=== PATIENT | male | born 1960 | race Caucasian/White ===

== ENCOUNTER 2023-04-03 06:42 | Outpatient (CLI) | payer BC, SELFPAY ==
[2023-04-03 07:51] VITALS: BMI 35.1
--- NOTE | 2023-04-03 07:56 | NMCV_ITS ---
NM betty perf SPECT r/s* [id number] Gregory Peralta Age: 63 Gender: M : 1960 Exam Date: 04/03/2023 08:11 Ordering Phys: Anny Fonseca Technologist: LINN Sage Exam Location: [facility] Indications: SHORTNESS OF BREATH STRESS TEST [facility] IMAGE PROTOCOL Rest/Stress 1 Exercise Day Radiopharmaceutical Dose (mCi) Administration Site Administered by Rest: Tc-99m 10.8 IV Refugio Cancino, TARGET TRIMMER Sestamibi Stress:Tc-99m 32.8 IV Refugio Cancino, TARGET TRIMMER Sestamibi Rest: 03-Apr-2023 60 Discovery 630 Stress: 03-Apr-2023 30 Discovery 630 Radiopharmaceutical was injected at 93 % maximum heart rate. Images obtained in supine and prone position. SPECT RESULTS Technical Quality: Excellent Raw Data Analysis: Normal Image Corrections: No attenuation or motion correction applied Summed Stress Score: 7 Summed Rest Score: 3 Summed Difference Score: 4 PERFUSION FINDINGS There is a small to medium sized, partially reversible perfusion defect noted in the inferolateral and inferior patino. This is consistent with small to medium sized areas of prior infarct with edward-infarct ischemia seen in left circumflex artery and RCA territories. FUNCTIONAL RESULTS (calculated via Gated SPECT) Stress Image LV EF (%): 59 Stress EDV (mL):145 TID: 0.86 Stress ESV (mL):60 FUNCTIONAL FINDINGS: There is normal left ventricular systolic function. IMPRESSIONS 1. Abnormal myocardial perfusion imaging with small to medium sized prior infarct with edward-infarct ischemia noted in the left circumflex artery and RCA territories. 2. LV systolic function is normal Kirt Gagnon MD (Electronically Signed) Final Date: 06 April 2023 11:00 S
--- NOTE | 2023-04-03 07:56 | ECG_ITS ---
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 Interpretive Statements NAME OF STUDY: EXERCISE SESTAMIBI STRESS TEST INDICATION: [mendes] EXERCISE DATA: The patient was exercised by Mark protocol. Baseline heart rate was 70 beats per minute. Baseline blood pressure was 157/107 millimeters of mercury. Target heart rate was 132 beats per minute. Maximum heart rate achieved was 147 which was 111% of the target heart rate. Maximum blood pressure was 243/96 millimeters of mercury. Total exercise time was 7 minutes 1 seconds. Maximum METs achieved was 10.2. The reason for ending the test was maximal effort achieved. The patient complained of shortness of breath during the stress test, which then resolved at the end of the test. ELECTROCARDIOGRAM: BASELINE: Showed sinus rhythm, normal axis, no significant ST-T changes at the baseline noted. [] EXERCISE: At the peak exercise level, [] No significant ST-T changes suggestive of ischemia noted. PVCs were noted [] RECOVERY: During the recovery period, heart rate dropped appropriately. No significant ST-T changes in the recovery suggestive of ischemia noted. [] CONCLUSION: 1. Exercise capacity is good 2. Heart rate response was appropriate 3. Blood pressure response was hypertensive. 4. Symptoms not suggestive of ischemia. 5. Electrocardiogram portion of the stress test was not suggestive of ischemia. 6. Nuclear scan will be documented separately. Electronically Signed On 04-29-2023 14:36:13 CDT by Kirt Gagnon M.D. [id number]
[2023-04-03 09:11] VITALS: BP 172/97; PULSE 83
== END 2023-04-03 06:43 | disposition home or self-care (01) ==
PROVIDERS: PCP Physician Assistant; Visit Provider Physician Assistant
DX: R06.00 Dyspnea, unspecified (principal); R06.02 Shortness of breath; I25.2 Old myocardial infarction
CPT/HCPCS: 36415; 78452; 93017; A9500

== ENCOUNTER 2023-05-22 08:40 | Outpatient (CLI) | payer BC, SELFPAY ==
--- NOTE | 2023-05-22 09:00 | USCV_ITS ---
Gregory Peralta Age: 63 Gender: M : 1960 Exam Date: 05/22/2023 08:57 Ordering Phys: Nai Calhoun Technologist: CT Exam Location: [facility] Indication: abn stress test BP: 130 / 85 HR: 57 Rhythm: Sinus Technical Quality: Adequate MEASUREMENTS (Male / Female) Normal Values 2D ECHO LVOT Diameter 2.9 cm LV Ejection Fraction MOD 2C 51.4 % LV Ejection Fraction 2C AL 50.6 % LA Diameter 4.7 cm Aorta at Sinotubular Diameter 3.0 cm IVC Diameter 1.8 cm M-MODE Aortic Annulus Diameter 3.9 cm LA Ao Ratio MM 1.3 MV E Point Septal Separation 1.1 cm DOPPLER AV Peak Velocity 147.0 cm/s LVOT Peak Velocity 104.0 cm/s AV Area Cont Eq vti 4.1 cm squared AV Area Cont Eq pk 4.5 cm squared MV Area PHT 3.0 cm squared Mitral E to A Ratio 0.8 MV E' Velocity 34.5 cm/s Mitral E to MV E' Ratio 8.9 Mitral E to LV E' Lateral Ratio 7.0 Mitral E to LV E' Septal Ratio 12.4 TR Peak Velocity 71.0 cm/s TR Peak Gradient 2.0 mmHg TV Peak E Velocity 72.0 cm/s Right Atrial Pressure 3.0 mmHg Pulmonary Artery Systolic Pressu 5.0 mmHg PV Peak Velocity 109.0 cm/s FINDINGS Left Ventricle Normal left ventricular size and systolic function, EF 61 %. No regional wall motion abnormalities. Right Ventricle The right ventricle is normal in size and function. Right Atrium The right atrium is normal in size. Left Atrium The left atrium is normal in size. Mitral Valve No gross abnormalities noted Aortic Valve Thickened aortic valve. [id number] aortic valve regurgitation. Tricuspid Valve No gross abnormalities noted Pulmonic Valve Pulmonic valve not well visualized. Pericardium Trivial pericardial effusion. Aorta Normal ascending aorta dimension. IVC The inferior vena cava appears normal. CONCLUSIONS Normal left ventricular size and systolic function, EF 61 %. No regional wall motion abnormalities. Thickened aortic valve. [id number] aortic valve regurgitation. Trivial pericardial effusion. Normal cardiac chamber sizes. Trivial pericardial effusion. There are no intracardiac masses. No similar previous studies are available for comparison. Dr Nai Calhoun MD FACC (Electronically Signed) Final Date: 25 May 2023 12:33 S
== END 2023-05-22 08:41 | disposition home or self-care (01) ==
PROVIDERS: PCP Physician Assistant; Visit Provider Internal Medicine Cardiovascular Disease
DX: R06.09 Other forms of dyspnea (principal); I35.8 Other nonrheumatic aortic valve disorders; I35.1 Nonrheumatic aortic (valve) insufficiency
CPT/HCPCS: 93306

== ENCOUNTER 2024-03-03 10:02 | Outpatient (CLI) | payer BC, SELFPAY ==
[2024-03-03 10:29] LABS: Basophils % 0.4 %; Eosinophils # 0.2 10^3/uL (0.0-0.8); Eosinophils % 3.3 %; Hematocrit 51.6 % (37-53); Lymphocytes # 1.6 10^3/uL (0.8-4.8); Lymphocytes % 35.1 %; Mean Corpuscular HGB Conc 33.7 g/dL (30-55); Mean Corpuscular Hemoglobin 30.6 pg (27-33); Mean Corpuscular Volume 90.7 fl (82-101); Mean Platelet Volume 8.9 fL (7.4-10.4); Monocytes # 0.4 10^3/uL (0.2-0.9); Monocytes % 8.8 %; Neutrophils # 2.35 10^3/uL (1.8-7.7); Nucleated Red Blood Cells % 0 %; Platelet Count 186 10^3/cmm (157-399); Red Blood Count 5.69 10^6/uL (3.85-5.65); Red Cell Distribution Width 13.3 % (12.1-15.1); White Blood Count 4.53 10^3/uL (3.29-11.43)
[2024-03-03 10:47] LABS: INR 0.86 (0.8-1.2)
[2024-03-03 11:17] LABS: Anion Gap 18.8 (5-19); Blood Urea Nitrogen 16 mg/dL (8-23); Carbon Dioxide 22 mmol/L (22-29); Chloride 101 mmol/L (98-107); Glucose 112 mg/dL (65-115); Osmolality Calculated 286 mOsm/kg (285-295); Potassium 4.8 mmol/L (3.5-5.1); Sodium 137 mmol/L (136-145)
== END 2024-03-03 10:03 | disposition home or self-care (01) ==
LOC: LAB 10:02
PROVIDERS: PCP Physician Assistant; Visit Provider Internal Medicine Cardiovascular Disease
DX: Z79.01 Long term (current) use of anticoagulants (principal); I48.91 Unspecified atrial fibrillation; I25.118 Atherosclerotic heart disease of native coronary artery with other forms of angina pectoris; R06.02 Shortness of breath
CPT/HCPCS: 36415; 80048; 85025; 85610; 86850; 86900

== ENCOUNTER 2024-03-10 07:29 | Outpatient (CLI) | payer BC, SELFPAY ==
[2024-03-10] VITALS (7 sets, daily range): BP systolic 119–150; BP diastolic 80–100; PULSE 60–79; RESP 16–24; TEMP 36.7–36.9; O2SAT 92–98; BMI 36.3
[2024-03-10] MEDS: diphenhydrAMINE 50 mg Capsule PO (07:45)
--- NOTE | 2024-03-10 07:52 | W.PM.OPSUD ---
Surgery/Procedure H&P Update DATE OF PROCEDURE: March 10, 2024 DATE H&P PERFORMED: 02/29/24 H&P UPDATE INFORMATION: I have reviewed H&P completed within last 30 days, I have examined patient prior to procedure and No changes to prior documentation PREOP DIAGNOSIS: Possible ASHD PRIMARY INDICATION FOR PROCEDURE: Abnormal Myocardial perfusion imaging, multiple risk factors for coronary artery disease, ongoing chest pain/shortness of breath PLANNED PROCEDURE: Operation Date: 03/10/24 08:30 Proposed Procedures p Cardiac Catheterization(Left) - Nai Calhoun MD PATIENT REASSESSED PRIOR TO SEDATION, WITH NO CHANGE NOTED: Yes PHYSICAL EXAM: alert, oriented x 3, clear to auscultation bilaterally and regular rate & rhythm AIRWAY EVAL/ANESTHESIA PLAN: normal airway, see other exam findings, ASA III, Local Anesthesia, Risks, benefits & alternatives of sedation and/or procedure discussed and Patient agrees to continue as planned
--- NOTE | 2024-03-10 08:30 | XACV_ITS ---
Exam Room: 2 Ht: 185 cm Wt: 125 kg BSA: 2.58 m2 Gender: Male : 1960 Any Known Allergies: Codeine Exam Priority: Routine Procedure(s): Procedure Description: Diagnostic procedure Procedure Description: Left Heart Catheterization Procedure Description: Left ventriculography Procedure Description: Coronary Angiography Procedure Description: Pressure Wire Lj SMITH; Diagnostic Cath Status: Elective Diagnostic Findings * Left main is a medium caliber vessel with minimal intimal irregularities and calcification. No significant stenotic lesions were noted. * Left anterior descending artery is a medium caliber vessel which appears to wraparound the LV apex minimally. There was moderate diffuse calcification in the proximal segment. Around 40% tubular narrowing was noted in the proximal segment of the artery. The first diagonal branch is small caliber vessel with was found to have a high-grade lesion involving the ostium. The first septal dioramist also was found to have a high-grade ostial stenosis. * The left circumflex artery is a medium caliber vessel which is also known to have a mild diffuse calcification in the proximal segment. Near the ostium, there was a 40% concentric narrowing. Near to the ostium of the circumflex artery, there was some haziness. This may suggest thrombus. The obtuse marginal artery was of equal caliber with minimal intimal irregularities.. * The right coronary artery is a small to medium caliber vessel which appears to have mild diffuse intimal irregularities no significant stenotic lesions were noted. The artery appears to be codominant with the circumflex artery. PCI Status: Elective PCI LVEF Assessed: Yes Interventional Findings * IFR ostial CX 0.99. Conclusions 1. 63-year-old white male with a history of hypertension, dyslipidemia, presents with complaints of chest pain and shortness of breath. He had a Myocardial perfusion imaging done in March of last year which it was found to be abnormal. He presented with increasing dyspnea on exertion, easy fatigability and episodes of chest discomfort. In view of his ongoing and worsening symptoms, in order to further evaluate his coronary status, a cardiac catheterization was recommended. Patient underwent left heart catheterization with left and right coronary angiogram and LV angiogram today. Findings are as follows. 2. Mild diffuse disease in the left main artery. Moderate calcification in the proximal segment of the left anterior descending artery involving the ostium causing around 40% narrowing. The first diagonal branch and the septal dioramist where found to have have an ostial stenosis of around 70%. This related to small caliber vessels. Mild diffuse calcification of the proximal circumflex artery. Minimal intimal irregularities in the right coronary artery. Haziness in the proximal segment of the circumflex artery near the ostium, may suggest thrombus or calcification. LV ejection fraction around 55%. LVEDP of 5 mmHg. Found to be. 3. Discussed and reviewed the cardiac catheterization data with the Dr. Irwin. Based on the angiographic findings, it was thought to be appropriate to consider IFR on the proximal circumflex lesion. Dr. Irwin concurred with this plan and took over further management of this patient at this point. Diagnostic RX Recommendation: other cardiac therapy w/o CABG/PCI Ventriculography Ejection Fraction: 55.0 % LV EDP: 4 mmHg Left Ventriculography Findings: * LV gram was done in the ADAMS projection. LV cavity appears to be within normal limits. There was significant mitral valve prolapse or mitral regurgitation. The overall variation fraction was around 55%. LVEDP of 4 mmHg. Pressures Phase:Rest AO : 120 / 68 ( 91 ) @ 10:32:00 AM 126 / 68 ( 90 ) @ 10:32:00 AM 114 / 76 ( 95 ) @ 11:00:00 AM LV : 117 / -21 / 4 @ 10:30:00 AM 107 / -29 / -5 @ 10:31:00 AM 124 / -18 / 7 @ 10:31:00 AM 120 / -14 / 10 @ 10:32:00 AM Valves Phase:DefaultPhase AV : 0.0 @ 10:12:51 AM AV Mean Gradient: 0.0 @ 10:12:51 AM Clinical Evaluation EBL: 5mL-10mL Procedural Details Pre-Procedure Time Out. Identified patient by full name and date of as verbalized by the patient/guarantor. Does the consent match the physician's order: Yes. Accurate & Complete Informed Consent: Yes. Inpatient/Outpatient History & Physical on Chart: Yes. If H&P is completed, is and addenduem needed: No. Visualize and Verify Site with Patient/Guarantor: N/A. Relevant Radiology Images available: Yes. Pre-op teaching completed and patient verbalized understanding. The risks, benefits, and alternatives of sedation and/or procedure were discussed by physician. The patient agrees to continue. Procedure started. [facility] Clinical Fraility Score: 3: Managing Well. 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 Chest Pain Symptom Assessment: Typical Angina Symptoms. Cardiovascular Instability: No. Correct patient, site and procedure confirmed by cath team. PERRLA. Strong, equal hand station engineer chief bilaterally. Lungs clear x 5 lobes. IV Site on Arrival: 20 gauge in the right anticubital. IV Fluids: 0.9% NaCl at KVO. 0 mL infused prior to laborer chemical processing. Pre Procedural Pulses: bilateral dorsalis pedis was 3+. Pre Procedural Pulses: bilateral posterior tibial was 2+. Pre Procedural Pulses: bilateral radial was 3+. Oxygen started at 2liters/min via nasal canula. right groin was prepped with chloroprep then draped in the usual sterile fashion. right radial was prepped with chloroprep then draped in the usual sterile fashion. Physician notified. Baseline sample Acquired. HR: 55 BPM. Patient's spouse in the laborer chemical processing waiting room. Dr. Calhoun will update at the completion of the procedure. Equipment: 6F - Radial. Cardiac Cath Pack. ACIST Manifold Kit Model BT 2000. Heparinized Saline (2 units/mL), 1000 mL bag. Physician arrived. Physician scrubbed in. Immediate Pre-Procedure Time Out. Correct Patient: Yes; Correct Procedure: Yes; Correct Site: Yes; Correct Patient Position: Yes; Correct Supplies: Yes; Dried Flammable Prep: Yes; Blood Products Available: N/A;. Lidocaine 1% infiltrated to the right radial. An attempt to gain access to the right radial artery was unsuccessful. TR band placed. Hemostasis obtained. Lidocaine 1% infiltrated to the right groin. Arterial access obtained with micropuncture set. A 5 english JL4 catheter in over the standard J wire. Multiple views taken of left coronary artery. Catheter removed over the standard J wire. A 5 english JR4 catheter in over the standard J wire. Multiple views taken of right coronary artery. Catheter removed over the exchange J wire. A 6 english 125cm Straight Pig catheter in over the exchange J wire. EDP Sample taken: LV 117/-22,4; HR: 54 BPM; SpO2: 94%. LV gram performed in ADAMS @ 12 mL/second for a total of 36 mL. EDP Sample taken: LV 107/-30,-6; HR: 68 BPM; SpO2: 95%. EDP Sample taken: LV 124/-19,7; HR: 68 BPM; SpO2: 95%. Pullback taken: LV 120/-15,10; AO 120/68(91); Mean: 0mmHg, Peak to Peak: 0mmHg, SEP: 5sec/min; HR: 66 BPM; SpO2: 95%. Catheter removed over the standard J wire. Dr. Irwin called to view cineography. Dr. Calhoun scrubbed out. Dr. Irwin here to view cineography. Dr. Irwin scrubbed in. 6 english XB 3.5 guide catheter was inserted over the standard J wire. Guide catheter out over the standard J wire. 6 english XB 4 guide catheter was inserted over the standard J wire. iFR guidewire was advanced through the guide catheter to lesion in the ostial Circ. iFR spot of the Ostial CX = 0.99. iFR wire out. Guide catheter out. Dr. Irwin scrubbed out. A Suture was successful obtaining hemostatsis at the Right Femoral artery insertion site. Sheath(s) sutured into position with 2-0 silk and sterile 4x4's and Op-site applied over the site. No oozing or signs and symptoms of hematoma noted. Arterial sheath flushed and connected to tranducer and pressure bag with heparinized saline. Post Procedure: Pulses reassessed and unchanged. PERRLA. Strong, equal hand station engineer chief bilaterally. No VTE prophylaxis required. Medication's Wasted: Lidocaine 1% = 8 mL. Medication's Wasted: Verapamil = 5 mg. Medication's Wasted: Nitro = 49.95 mg. Medication's Wasted: Heparin = 2500 Units. Total IV fluids: 570 mL. Post-op diagnosis: Non obstructive CAD. Complications: none. Estimated blood loss: 5mL-10mL. Responsiveness - Normal response to verbal stimuli; alert and oriented, PERRLA. Airway - Unaffected, no intervention required; spontaneous ventilation. Circulation: W/N/L, pulses unchanged. Nausea/Vomiting: No. Procedure completed. Patient transferred by bed to CPRU. Vital chart was stopped. Access Site Site: Right Femoral artery Sheath Size: 6 Fr Hemostasis Method: Suture Hemostasis Success: Successful Procedure Medications Start: 8:46 AM Stop: 8:46 AM Medication: Versed Amount: 1 mg Route: I.V. Start: 8:47 AM Stop: 8:47 AM Medication: Fentanyl Amount: 50 mcg Route: I.V. Start: 8:55 AM Stop: 8:55 AM Medication: Versed Amount: 1 mg Route: I.V. Start: 9:00 AM Stop: 9:00 AM Medication: 0.9% Saline Amount: 250 ml Route: I.V. bolus Start: 9:05 AM Stop: 9:05 AM Medication: Nitrogylcerin Amount: 50 mcg Route: S.C. Start: 9:12 AM Stop: 9:12 AM Medication: Versed Amount: 1 mg Route: I.V. Start: 9:15 AM Stop: 9:15 AM Medication: Fentanyl Amount: 25 mcg Route: I.V. Start: 9:22 AM Stop: 9:22 AM Medication: Heparin Amount: 1500 units Route: I.V. Start: 9:30 AM Stop: 9:30 AM Medication: 0.9% Saline Amount: 250 ml Route: I.V. bolus Start: 9:49 AM Stop: 9:49 AM Medication: Fentanyl Amount: 25 mcg Route: I.V. I, the attending physician, have reviewed and verified all procedure medications. Yes, all medications given per verbal order History/Risk Factors Hypertension: Yes Dyslipidemia: Yes Peripheral Arterial Disease (PAD): No Myocardial Infarction (ID): No Obesity: Yes Renal Disease: No Tobacco Use: Former Prior Interventions PCI: No CABG: No Valve Surgery: No Report Signatures Diagnostic Workflow Finalized by Dr Nai Calhoun MD [facility] on 03/10/2024 11:50 AM Interventional Workflow Finalized by Dr. Demario Irwin MD on 03/10/2024 10:19 AM
[2024-03-10 13:03] LABS: Partial Thromboplastin Time 28.2 SECONDS (23.9-36.7)
[2024-03-10] MEDS: fentaNYL 50 mcg/mL INJ 2mL IVP (13:35)
--- NOTE | 2024-03-10 15:08 | PC.NURSE ---
Sheath pulled at 1345 pressure held x20 minutes. No hematoma formation. Pressure dressing applied. Patient verbalized understanding of activity restrictions. Nurse will continue to monitor.
[2024-03-10] MEDS: metoprolol tartrate 25 mg Tablet PO (17:34)
== END 2024-03-10 20:26 | disposition home or self-care (01) ==
LOC: CCL 07:30 → CSU 11:17
PROVIDERS: Internal Medicine Cardiovascular Disease; PCP Physician Assistant; Visit Provider Internal Medicine Cardiovascular Disease
DX: I25.10 Atherosclerotic heart disease of native coronary artery without angina pectoris (principal); I10 Essential (primary) hypertension; E78.5 Hyperlipidemia, unspecified; E66.9 Obesity, unspecified; Z68.36 Body mass index [BMI] 36.0-36.9, adult; Z87.891 Personal history of nicotine dependence
CPT/HCPCS: 36415; 85730; 93458; 93571; 96374; 96375; 99152; 99153; C1769; C1887; C1894; J1644; J2250; J3010; J3490; J7030; Q0163; Q9967

== ENCOUNTER → 2024-03-31 14:16 | Outpatient (BNVA) | payer BC, SELFPAY | PROVIDERS: PCP Physician Assistant; Visit Provider Nurse Practitioner Family | DX: I10 Essential (primary) hypertension (principal) | CPT/HCPCS: 36415; 80048 ==

== ENCOUNTER 2024-06-13 13:15 | Outpatient (CLI) | payer BC, SELFPAY | END 2024-06-13 13:16 | disposition home or self-care (01) | LOC: SLEEP 13:17 | PROVIDERS: PCP Physician Assistant; Visit Provider Physician Assistant | DX: G47.33 Obstructive sleep apnea (adult) (pediatric) (principal); G47.36 Sleep related hypoventilation in conditions classified elsewhere | CPT/HCPCS: G0399 ==

== ENCOUNTER 2024-10-27 08:01 | Emergency (ER) | payer MEDICARE, SELFPAY ==
[2024-10-27] VITALS (24 sets, daily range): BP systolic 118–170; BP diastolic 81–121; PULSE 89–99; RESP 14–25; TEMP 36.9; O2SAT 91–98; BMI 36.6
--- NOTE | 2024-10-27 08:27 | XR_ITS ---
WS: [id number] XR chest 1V portable [id number] REASON FOR EXAM: dyspnea/cough FINDINGS: Significant tortuosity and ectasia of the thoracic aorta. Mild cardiac enlargement. Calcified granulomatous disease bilaterally. No acute pulmonary parenchymal or pleural abnormality is noted. There may be narrowing of the subglottic airway related to upper respiratory tract viral infection. XR/XR chest 1V portable [id number] IMPRESSION: No acute chest abnormality. Possible narrowing of the subglottic airway as above.
--- NOTE | 2024-10-27 08:46 | W.ED.URI ---
HPI - URI/Sore Throat General: Chief Complaint: Upper Respiratory Infection Stated Complaint: throat,sinus,head hurts abnormal talking Time Seen by Provider: 10/27/24 08:24 History of Present Illness: 64-year-old male presents emergency room complaining of neck pain difficulty swallowing for the last 3 days he has garbled voice. He is having a difficult time enunciating words because of the amount of swelling in his neck he refers pain into the left sublingual region and to the submandibular area on the left. Subjective fever. No vomiting or diarrhea no hemoptysis no history of laryngeal cancers. He does not have any teeth issues recently. No history of tobacco use either by chew or smoking. Associated symptoms: Deny abdominal pain, chills, chest pain or fever(s) Related Data Home Medications ?Medication ?Instructions ?Recorded ?Confirmed benazepril 40 mg tablet 40 mg PO DAILY 05/11/23 10/27/24 atorvastatin 40 mg tablet 40 mg PO DAILY 08/25/23 10/27/24 triamcinolone acetonide 0.1 % 1 applic topical BID PRN Skin 10/27/24 10/27/24 topical cream Irritation Previous Rx's ?Medication ?Instructions ?Recorded metoprolol tartrate 25 mg tablet 25 mg PO BID 30 days #180 tabs 07/17/23 Allergies Allergy/AdvReac Type Severity Reaction Status Date / Time codeine Allergy Unknown Verified 03/31/24 13:24 Review of Systems Const: Denies: fever(s) or chills Card: Denies: chest pain Resp: Denies: dyspnea GI: Denies: abdominal pain : Denies: dysuria, urinary frequency or urinary urgency Musc: Reports: neck pain; Denies: back pain Skin/Breast: Denies: rash PFS ED PFSH: Medical History Hx of fracture of ankle Surgical History History of parathyroidectomy Family History Other CAD (coronary artery disease) Social History Smoking and tobacco/nicotine status: former use of tobacco/nicotine Quit status (tobacco/nicotine): has quit using Year quit tobacco: 1989 Former quit date comment: 1 ppd X 15 years Physical Exam Const: GENERAL APPEARANCE: cooperative ORIENTATION/CONSCIOUSNESS: Yes awake, Yes oriented to person, Yes oriented to place and Yes oriented to time HENMT: COMMON NORMALS: normocephalic, atraumatic and hearing grossly normal bilaterally HEAD & SCALP: normocephalic and atraumatic OTHER: Posterior pharyngeal wall erythema without exudate uvula markedly swollen Stridor with muffled voice, patient noted to have difficulty clearing secretions Resp: COMMON NORMALS: normal respiratory effort, No retractions, No use of accessory muscles and clear to auscultation bilaterally AUSCULTATION: clear to auscultation bilaterally Cardio: COMMON NORMALS: regular rate, regular rhythm and No murmurs present (Cardio) RATE: regular rate RHYTHM: regular rhythm GI: COMMON NORMALS: Soft to palpation and No hepatosplenomegaly present AUSCULTATION: Yes normoactive bowel sounds PALPATION: Yes Soft to palpation, No Tenderness to palpation present (GI), No Guarding due to palpation present (GI) and Yes No hepatosplenomegaly present Extremity: COMMON NORMALS: normal to inspection, capillary refill normal, no clubbing, cyanosis or edema, no calf tenderness and no pedal edema Neuro: SENSORIUM/ORIENTATION: Yes oriented to person, Yes oriented to place and Yes oriented to time Skin: COMMON NORMALS: no rashes or lesions noted GENERAL SKIN EXAM: no rashes or lesions noted Procedures Intubation Time out performed: Yes sedative: Etomidate Mg Given: 30 paralytic: Succinylcholine Mg Given: 120 Laryngoscope: fiber optic video scope ET Tube Size: 8 ET Tube Uncuffed: No Tube Secured Depth (cm): 22 Tube Secured Location: teeth Tube Placement Confirmation: visualized tube passing through cords, equal breath sounds bilaterally, no breath sounds over epigastrium and confirmation by capnometry Patient Tolerated Procedure: well Intubation Complications: none Course Vital Signs: Vital signs: Vital Signs Temperature 98.4 F 10/27/24 08:19 Pulse Rate 94 10/27/24 16:00 Respiratory Rate 16 10/27/24 16:00 Blood Pressure 124/81 10/27/24 16:00 Pulse Oximetry 98 10/27/24 16:00 Oxygen Delivery Me thod Room Air 10/27/24 11:15 Fraction of Inspir ed Oxygen 100 10/27/24 12:15 MDM - URI/Sore Throat Medical Decision Making CT reviewed. Electively intubated patient after discussion of results with him he has a large retropharyngeal abscess) impending on his airway. It is likely to take his quite some time to make arrangements for transfer concerned that as this advances it may further compromise his airway. Waiting until a later time to intubate could lead to marked increase in difficulty of intubation and compromised patient's safety. Patient agreed to intubation consent signed RSI done as currently on sedation he has been given Rocephin and vancomycin as well as dexamethasone. Tried multiple local tertiary care centers patient has a retropharyngeal abscess compromising his airway will need to be transferred to higher level of care. No available beds in [facility] or [place]. Ultimately were able to get a bed secured at [place] will fly by air ambulance due to length of time patient would be out of hospital on the ventilator. He has received Rocephin dexamethasone and vancomycin he currently is on propofol Versed and fentanyl for sedation Medical Records I reviewed the patient's medical records. Lab Data I reviewed the patient's lab results. 10/27/24 09:15 10/27/24 09:15 Radiology Impressions Chest X-Ray 10/27/24 08:27 IMPRESSION: No acute chest abnormality. Possible narrowing of the subglottic airway as above. Neck CT 10/27/24 08:57 IMPRESSION: 1. Large LEFT peritonsillar and retropharyngeal abscess and phlegmon. Abscess extends over a length of 6.5 cm extending from the tongue base through the LEFT tonsillar bed to just below the level of the epiglottis. Maximum transverse diameter 4.1 cm. 2. Large amount of edema extending retropharyngeal crossing the midline to the RIGHT. 3. Narrowing and compression upon the oropharyngeal airway by the large retropharyngeal abscess. 4. Mildly reactive lymphadenopathy. Notified Rafy Chavez DO at 10/27/2024 11:11 AM. Laboratory Results WBC 10.03 10^3/uL (3.29-11.43) 10/27/24 09:15 RBC 6.10 10^6/uL (3.85-5.65) H 10/27/24 09:15 Hgb 18.90 g/dL (11.27-16.99) H 10/27/24 09:15 Hct 55.5 % (37-53) H 10/27/24 09:15 MCV 91.0 fl (82-101) 10/27/24 09:15 MCH 31.0 pg (27-33) 10/27/24 09:15 MCHC 34.1 g/dL (30-55) 10/27/24 09:15 RDW 15.9 % (12.1-15.1) H 10/27/24 09:15 Plt Count 146 10^3/cmm (157-399) L 10/27/24 09:15 MPV 8.5 fL (7.4-10.4) 10/27/24 09:15 Neut % (Auto) 84.0 % 10/27/24 09:15 Lymph % (Auto) 6.5 % 10/27/24 09:15 [place] % (Auto) 8.7 % 10/27/24 09:15 Eos % (Auto) 0.1 % 10/27/24 09:15 Baso % (Auto) 0.2 % 10/27/24 09:15 Neut # (Auto) 8.43 10^3/uL (1.8-7.7) H 10/27/24 09:15 Lymph # (Auto) 0.7 10^3/uL (0.8-4.8) L 10/27/24 09:15 [place] # (Auto) 0.9 10^3/uL (0.2-0.9) 10/27/24 09:15 Eos # (Auto) 0.0 10^3/uL (0.0-0.8) 10/27/24 09:15 Baso # (Auto) 0.0 10^3/uL (0.0-0.1) 10/27/24 09:15 Nucleated RBC % (auto) 0 % 10/27/24 09:15 Nucleated RBCs # 0.0 /100WBC 10/27/24 09:15 Specimen Type Arterial 10/27/24 12:00 Sample Site Radial, right 10/27/24 12:00 ABG pH 7.38 (7.35-7.45) 10/27/24 12:00 ABG pCO2 37.0 mmHg (35-45) 10/27/24 12:00 ABG pO2 193.0 mmHg (80.0-100.0) H 10/27/24 12:00 ABG PO2/FiO2 Ratio 193 10/27/24 12:00 ABG HCO3 22.0 mmol/L (22-26) 10/27/24 12:00 ABG O2 Saturation > 99.1 10/27/24 12:00 ABG Base Excess -2.5 mmol/L (-2.0-2.0) L 10/27/24 12:00 Jim Test Pos 10/27/24 12:00 A-a O2 Gradient 61.3 mmHg (5-10) H 10/27/24 12:00 Hematocrit 56.6 % (42-52) H 10/27/24 12:00 Hgb O2 Saturation 98.5 % (95-100) 10/27/24 12:00 Carboxyhemoglobin 1.4 %THgb (0.4-20.1) 10/27/24 12:00 Methemoglobin 0.1 % (0.4-1.5) L 10/27/24 12:00 Total Hemoglobin 18.5 g/dL (14-18) H 10/27/24 12:00 Sodium 136.0 mmol/L (131-143) 10/27/24 12:00 Potassium 3.9 mmol/L (3.5-5.0) 10/27/24 12:00 Glucose 151.0 mg/dL (70-115) H 10/27/24 12:00 Ionized Calcium 1.2 mmol/L (1.1-1.4) 10/27/24 12:00 O2 Delivery Device Vent 10/27/24 12:00 FiO2 100.0 % 10/27/24 12:00 Tidal Volume 0.56 10/27/24 12:00 PEEP 5.0 cmH20 10/27/24 12:00 Radiographer Technologist ID [place] 10/27/24 12:00 Sodium 136 mmol/L (136-145) 10/27/24 09:15 Potassium 4.1 mmol/L (3.5-5.1) 10/27/24 09:15 Chloride 100 mmol/L (98-107) 10/27/24 09:15 Carbon Dioxide 22 mmol/L (22-29) 10/27/24 09:15 Anion Gap 18.1 (5-19) 10/27/24 09:15 BUN 9 mg/dL (8-23) 10/27/24 09:15 Creatinine 0.9 mg/dL (0.7-1.2) 10/27/24 09:15 GFR Calculation 84.4 mL/min (90-130) L 10/27/24 09:15 Glucose 169 mg/dL (65-115) H 10/27/24 09:15 Calculated Osmolality 285 mOsm/kg (285-295) 10/27/24 09:15 Calcium 9.8 mg/dL (8.5-10.5) 10/27/24 09:15 Total Bilirubin 1.7 mg/dL (0.15-1.2) H 10/27/24 09:15 AST 11 U/L (0-40) 10/27/24 09:15 ALT 15 U/L (0-41) 10/27/24 09:15 Alkaline Phosphatase 78 U/L (40-130) 10/27/24 09:15 Total Protein 7.7 g/dL (6.6-8.7) 10/27/24 09:15 Albumin 4.2 g/dL (3.5-5.2) 10/27/24 09:15 Globulin 3.5 g/dL (1.3-4.6) 10/27/24 09:15 Influenza A (PCR) Negative (Negative) 10/27/24 09:15 Influenza Type B (PCR) Negative (Negative) 10/27/24 09:15 RSV (PCR) Negative (Negative) 10/27/24 09:15 SARS-CoV-2 (PCR) Negative (Negative) 10/27/24 09:15 Group A Strep Rapid Negative (Negative) 10/27/24 09:15 All radiology interpretation(s) finalized by discharge Discharge Plan Discharge Patient Disposition: Xfer Short-Term Hosp Clinical Impression: Retropharyngeal abscess Condition: Stable Referrals: Anny Fonseca PA [Primary Care Provider] - Print Language: [place]agu[place] Coding Level of Care Code ED Collections Attorney for Susan Humphrey
--- NOTE | 2024-10-27 08:57 | CT_ITS ---
WS: [id number] CT NECK WITH CONTRAST HISTORY: neck swelling/dysphagia TECHNIQUE: Contiguous 2 mm axial images are performed through the neck with intravenous contrast. Sagittal and coronal reformats are also submitted. All CT scans at [facility] use at least one of these dose optimization techniques: automated exposure control; mA and/or kV adjustment per patient size (includes targeted exams where dose is matched to clinical indication); or iterative reconstruction. CONTRAST: CONTRAST: Omnipaque 350; 100 mL IV. DLP: 493.51 mGy.cm COMPARISON: None available. Large retropharyngeal abscess begins at the tongue base and LEFT [place] tonsillar bed and extends inferiorly by 6.5 cm. Abscess is greater to the LEFT throughout the peritonsillar bed but also extends posterior to the hypopharynx. There is mass effect upon the oropharyngeal airway with moderate stenosis. Component of abscess and phlegmonous collection. There is a component of fluid crossing the midline at the level of the epiglottis.. Largest transverse diameter is approximately 4.1 cm. Mildly hyperactive bilateral cervical chain lymph nodes measure up to 9 mm. Bilateral thyroid nodules. Visualized paranasal sinuses and mastoid air cells are normal. Lung apices are clear. CT/CT neck w con* [id number] IMPRESSION: 1. Large LEFT peritonsillar and retropharyngeal abscess and phlegmon. Abscess e xtends over a length of 6.5 cm extending from the tongue base through the LEFT tonsillar bed to just below the level of the epiglottis. Maximum transverse duong meter 4.1 cm. 2. Large amount of edema extending retropharyngeal crossing the midline to the RIGHT. 3. Narrowing and compression upon the oropharyngeal airway by the large retroph aryngeal abscess. 4. Mildly reactive lymphadenopathy. Notified Rafy Chavez DO at 10/27/2024 11:11 AM.
[2024-10-27 09:31] LABS: Basophils % 0.2 %; Eosinophils % 0.1 %; Hematocrit 55.5 % (37-53); Lymphocytes # 0.7 10^3/uL (0.8-4.8); Lymphocytes % 6.5 %; Mean Corpuscular HGB Conc 34.1 g/dL (30-55); Mean Platelet Volume 8.5 fL (7.4-10.4); Monocytes # 0.9 10^3/uL (0.2-0.9); Monocytes % 8.7 %; Neutrophils # 8.43 10^3/uL (1.8-7.7); Nucleated Red Blood Cells % 0 %; Platelet Count 146 10^3/cmm (157-399); Red Cell Distribution Width 15.9 % (12.1-15.1); White Blood Count 10.03 10^3/uL (3.29-11.43)
[2024-10-27] MEDS: ondansetron 2 mg/ML SDV 2 mL 4 MG IVP (09:34)
[2024-10-27 09:40] LABS: Alanine Aminotransferase 15 U/L (0-41); Albumin Level 4.2 g/dL (3.5-5.2); Alkaline Phosphatase 78 U/L (40-130); Anion Gap 18.1 (5-19); Aspartate Amino Transferase 11 U/L (0-40); Blood Urea Nitrogen 9 mg/dL (8-23); Calcium 9.8 mg/dL (8.5-10.5); Carbon Dioxide 22 mmol/L (22-29); Chloride 100 mmol/L (98-107); Creatinine Clr Calc Pharmacy 112.3471; Globulin 3.5 g/dL (1.3-4.6); Glomerular Filtration Rate 84.4 mL/min (90-130); Glucose 169 mg/dL (65-115); Osmolality Calculated 285 mOsm/kg (285-295); Potassium 4.1 mmol/L (3.5-5.1); Sodium 136 mmol/L (136-145); Total Bilirubin 1.7 mg/dL (0.15-1.2); Total Protein 7.7 g/dL (6.6-8.7)
[2024-10-27] MEDS: morphine 4 mg/mL SDV 1 mL IVP (09:43)
[2024-10-27] MEDS: cefTRIAXone 1,000 mg SDV 1000 MG IVP (09:54)
[2024-10-27 10:03] LABS: Rapid Strep A Test Negative (Negative)
[2024-10-27 10:12] LABS: Influenza A NEGATIVE (Negative); Influenza B NEGATIVE (Negative); Respiratory Syncytial Virus Ce NEGATIVE (Negative); SARS-CoV-2 PCR NEGATIVE (Negative)
[2024-10-27] MEDS: iohexol 350 mg/mL 500 mL Btl (per mL) IV (10:14)
[2024-10-27] MEDS: etomidate 2 mg/mL INJ SDV 10 mL 30 MG IVP (11:42)
[2024-10-27] MEDS: succinylcholine 20 mg/mL SDV 10mL 120 MG IVP (11:42)
[2024-10-27] MEDS: propofol 10 mg/mL SDV 20 mL 200 MG IVP (11:47)
[2024-10-27] MEDS: fentaNYL 1,000 MCG/100 ML BAG 5 MCG IV (11:54)
[2024-10-27] MEDS: midazolam hcl 100 MG/100 ML BAG IV (11:54)
--- NOTE | 2024-10-27 12:01 | PC.NURSE ---
PATIENT PLACED IN SOFT RESTRAINTS DUE TO WAKING UP FOR INTUBATION AND TRYING TO REMOVE TUBE. BOTH WRISTS RESTRAINED AT 1200. DR ROSSI ORDERED HEAVIER SEDATION MEDS, 50 MG PROPOFOL AT THAT TIME.
--- NOTE | 2024-10-27 12:08 | PC.NURSE ---
AT 1145, PT BEGAN TO WAKE UP POST INTUBATION. DR. ROSSI NOTIFIED. VERBAL ORDERS TO PULL UP 100MG OF PROPOFOL. 50MG PROPOFOL ADMINISTERED VIA IVP BY DR. ROSSI AT 1147, AND THEN ANOTHER 50MG ADMINISTERED BY DR. ROSSI AT 1148. AT 1155, PT BEGAN TO WAKE UP AGAIN. DR. ROSSI GAVE VERBAL ORDERS FOR 50MG PROPOFOL IVP AGAIN. 50MG PROPOFOL ADMINSTERED BY DR. ROSSI. PT BEGAN TO WAKE UP AGAIN, VERBAL ORDERS FOR NON-VIOLENT SOFT RESTRAINTS DUE TO PT TRYING TO RIP OUT TUBES AND ANOTHER 50MG PROPOFOL IVP. 50MG PROPOFOL ADMINISTERED BY DR. ROSSI AT 1200. PT PLACED IN SOFT RESTRAINTS WITH ORDERED IV SEDATION RUNNING.
[2024-10-27 12:11] LABS: ABG PH Result 7.38 (7.35-7.45); Alveolar-Arterial Oxygen Gradi 61.3 mmHg (5-10); Arterial Blood Gas Hematocrit 56.6 % (42-52); Base Excess ABG -2.5 mmol/L (-2.0-2.0); Blood Gas Allen Test Pos; Blood Gas Operator Identificat WALCI; Blood Gas Sample Site Radial, right; Blood Gas Sample Type Arterial; Blood Gas Tidal Volume 0.56; Carboxyhemoglobin 1.4 %THgb (0.4-20.1); HGB O2 Sat 98.5 % (95-100); Ionized Calcium Level - ABG 1.2 mmol/L (1.1-1.4); Methemoglobin 0.1 % (0.4-1.5); Oxygen Device VENT; Oxygen Saturation ABG > 99.1; PO2 FiO2 Ratio Arterial Blood 193; Potassium Level - ABG 3.9 mmol/L (3.5-5.0); Total Hemoglobin 18.5 g/dL (14-18)
[2024-10-27] MEDS: VANCOMYCIN ADD-Vantage 1,000 MG in 0.9% NaCl ADD-Vantage 250 ML 250 MG IV (12:19)
[2024-10-27] MEDS: propofol 1,000 MG/100 ML INJ 15.13 MG IV (13:39)
[2024-10-27] MEDS: sodium chloride 0.9% 1,000 ML 999 ML IV (14:45)
[2024-10-27] MEDS: propofol 1,000 MG/100 ML INJ 26.48 MG IV (15:28)
--- NOTE | 2024-10-27 15:28 | PC.NURSE ---
ADDITIONAL BOTTLE OF 1000MG/100ML PROPOFOL PULLED AND GIVEN TO AIR [employer]W.
== END 2024-10-27 16:02 | disposition short-term general hospital (02) ==
PROVIDERS: Emergency Provider Family Medicine; PCP Physician Assistant
DX: J39.0 Retropharyngeal and parapharyngeal abscess (principal); Z11.52 Encounter for screening for COVID-19; Z87.891 Personal history of nicotine dependence
CPT/HCPCS: 31500; 36415; 36600; 51702; 70491; 71045; 80051; 80053; 82330; 82805; 85025; 87040; 87070; 87081; 87205; 87637; 87880; 94002; 94799; 96365; 96366; 96367; 99291; 99292; J0330; J0696; J2250; J2270; J2405; J2704; J3010; J3370; J3490; J7030; J7050